=== PATIENT | female | born 1970 | race Caucasian/White ===

== ENCOUNTER 2017-03-16 15:19 | Emergency (ER) | payer BC ==
[2017-03-16 16:36] VITALS: BP 118/80
--- NOTE | 2017-03-16 16:44 | UC ---
Ling Talamantes Emily, scribed for Amy Cleveland MD on 03/16/17 at 1625 . Respiratory Complaint HPI - HPI Summary HPI Summary: This patient is a 47 year old F presenting to urgent care with a chief complaint of cough that began 2 weeks. Symptoms aggravated by physical activity. symptoms improve with rest. Patient reports SOB, fatigue, productive cough, slight wheeze, chest pressure, nausea, post nasal drip, and nasal congestion. Patient denies fever. Pt reports new sick contacts with similar sx. Pt reports feeling similarly 3 weeks ago, but symptoms waned prior to her current symptoms.Pt has been taking nyquil, dayquil and mucinex with mild improvement in sx. Pt using flovent as needed without improvement. No rash , chills, fever. Pt states she has had walking pna in the past and feels this is "heading this way." Patients medications reviewed this visit. - History of Current Complaint Chief Complaint: UCRespiratory Stated Complaint: URI Time Seen by Provider: 03/16/17 16:05 Hx Obtained From: Patient Onset/Duration: Sudden Onset, Lasting Weeks, Still Present Timing: Constant Character: Cough: Productive Aggravating Factors: Other - Physical activity Alleviating Factors: Nothing Associated Signs And Symptoms: Positive: Wheezing. Negative: Fever - Allergies/Home Medications Allergies/Adverse Reactions: Allergies Allergy/AdvReac Type Severity Reaction Status Date / Time No Known Allergies Allergy Verified 03/16/17 15:58 Home Medications: Home Medications Albuterol HFA INHALER* [Ventolin HFA Inhaler*] 1 puff INH Q4H PRN 03/16/17 [ History Confirmed 03/16/17] Fluticasone HFA 110 mcg(NF) [Flovent HFA 110 mcg(NF)] 1 puff INH BID 03/16/17 [ History Confirmed 03/16/17] Norgestimate-Eth Estradiol(NF) [Ortho Tri-Cyclen (NF)] 1 tab PO DAILY 03/16/17 [ History Confirmed 03/16/17] PMH/Surg Hx/FS Hx/Imm Hx Previously Healthy: Yes Respiratory History: Pneumonia Other Psychological History: Allergies - Surgical History Surgical History: None - Family History Known Family History: Negative: Cardiac Disease, Diabetes - Social History Occupation: Employed Full-time Lives: With Family Alcohol Use: Daily Alcohol Amount: not when sick Substance Use Type: None Smoking Status (MU): Never Smoked Tobacco Review of Systems Constitutional: Fatigue, Other - Negative fever Eyes: Negative ENT: Nasal Discharge, Sinus Congestion, Sinus Pain/Tenderness, Other - pnd Respiratory: Shortness Of Breath, Cough, Other - Positive slight wheeze Cardiovascular: Other - Positive chest pressure Gastrointestinal: Nausea Motor: Negative Neurovascular: Negative Musculoskeletal: Negative Neurological: Negative Psychological: Negative Is Patient Immunocompromised?: No All Other Systems Reviewed And Are Negative: Yes Physical Exam Triage Information Reviewed: Yes Appearance: Well-Appearing, No Pain Distress, Well-Nourished Vital Signs: Initial Vital Signs Temp 99.4 F 03/16/17 15:54 Pulse 94 03/16/17 15:54 Resp 18 03/16/17 15:54 Pulse Ox 100 03/16/17 15:54 Vital Signs Reviewed: Yes Eyes: Positive: Conjunctiva Clear ENT: Positive: Hearing grossly normal, Pharynx normal, Pharyngeal erythema - left ear with fluid no erythema, no retractions turbinates inflammed and boggy + PND, TMs normal - left ear with fluid no erythema, no retractions, Other: - + TTP with palp sinuses, L> right max Dental Exam: Normal Neck exam: Normal Neck: Positive: Supple, Nontender Respiratory Exam: Normal Respiratory: Positive: Chest non-tender, No respiratory distress, No accessory muscle use, Wheezing - few scattered wheeze no retractions + BS throughout easy resp No accessory muscle use Cardiovascular Exam: Normal Cardiovascular: Positive: RRR, No Murmur, Pulses Normal Abdominal Exam: Normal Abdomen Description: Positive: Nontender, No Organomegaly Bowel Sounds: Positive: Present Musculoskeletal Exam: Normal Musculoskeletal: Positive: Strength Intact Neurological Exam: Normal Neurological: Positive: Alert Psychological Exam: Normal Psychological: Positive: Normal Response To Family Skin Exam: Normal UC Diagnostic Evaluation - Laboratory O2 Sat by Pulse Oximetry: 100 Respiratory Course/Dx - Course Course Of Treatment: Pt presents with cough, congestion, nausea, sinus congestion, PND. Pt did state had some chest pressure that she feels is her lungs. I requested to do and EKG - pt strongly declined - stating it is not her heart and doesn't need it. I discussed my rationale with pt - continues to decline. Pt with 2+ weeks of cough, intermittnet wheeze, sinus pressure. Will start z pack. Albuterol (not flovent). nasonex. continue with yoseph. secretion precaution. pcp f/u. Pt comfortable and in agreement with plan. recommend referral to ED if sx persist, changes to chest sx or other concerns. Pt in agreement with plan - Differential Dx/Diagnosis Provider Diagnoses: bronchitis. sinusitis Discharge - Discharge Plan Condition: Stable Disposition: HOME Prescriptions: Albuterol HFA INHALER* [Ventolin HFA Inhaler*] 1 puff INH Q4H PRN #1 mdi PRN Reason: sob Azithromycin TAB* [Zithromax TAB (Z-BARRY) 250 mg #6 tabs] 2 tab PO .TODAY, THEN 1 DAILY #1 barry Fluticasone NASAL SPRAY 50MCG* [Flonase NASAL SPRAY 50MCG*] 2 spray BOTH NARES DAILY #1 btl Patient Education Materials: Acute Bronchitis (ED) Referrals: Manuela Hardy MD [Primary Care Provider] - Additional Instructions: - Stay well hydrated. Drink plenty of non-alcoholic, non-caffinated beverages. - Take antibiotics as prescribed until gone - Use your inhaler - 2 puffs every 6 hours as needed for wheeze - continue taking allergy medication as prescribed - After you have been on antibiotics for 2 days - change your toothbrush and your pillowcase. These infections are spread by secretions - do NOT share eating or drinking utensils - clean items you share with other people such as cell phones, computer mouse, TV remote, computer tablets, etc - Alternate ibuprofen (Advil, Motrin) 600mg and Tylenol every 3 hours for pain or fever. Take with food. Do NOT take for more than 4-5 days. - Call your doctor to schedule a follow-up appointment. Contact your doctor or return with questions or concerns The documentation as recorded by the Ling fontenot Emily accurately reflects the service I personally performed and the decisions made by , Amy Cleveland MD.
== END 2017-03-16 16:46 | disposition home or self-care (01) ==
LOC: UCEAST 15:19
DX: J40 Bronchitis, not specified as acute or chronic (principal); J32.9 Chronic sinusitis, unspecified; Z87.01 Personal history of pneumonia (recurrent)
CPT/HCPCS: 99212; G0463